=== PATIENT | female | born 1990 | race Caucasian/White ===

== ENCOUNTER 2024-03-13 23:43 | Emergency (ER) | payer BC, OTHER ==
[~2024-03-13] VITALS: Ht 167.6 cm; Wt 72.6 kg
[2024-03-14] MEDS ORDERED: methylPREDNISolone SOD SUCC 125 MG/2ML VIAL ONE ×2 (00:12→00:17)
[2024-03-14] MEDS: methylPREDNISolone SOD SUCC 125 MG/2ML VIAL IM ONE (00:17)
[2024-03-14] MEDS: ALBUTEROL FS 2.5 MG/3 ML VIAL.NEB NEB ONE (00:26)
[2024-03-14] MEDS ORDERED: ALBUTEROL FS 2.5 MG/3 ML VIAL.NEB ONE (00:36)
[2024-03-14 00:40] VITALS: O2SAT 97
[2024-03-14 00:50] VITALS: O2SAT 99
[2024-03-14 01:02] LABS: BASOPHILS % (AUTO) 0.5 % (0.0-2.0); EOSINOPHILS # (AUTO) 0.2 K/uL (0.0-0.7); EOSINOPHILS % (AUTO) 3.8 % (0.0-6.0); HEMATOCRIT 41 % (33-45); HEMOGLOBIN 13.5 g/dL (11.5-14.8); LYMPHOCYTES # (AUTO) 2.3 K/uL (0.8-4.8); MEAN CORPUSCULAR HEMOGLOBIN 30 PG (26.0-33.0); MEAN CORPUSCULAR HGB CONC 33 g/dl (31.0-36.0); MEAN CORPUSCULAR VOLUME 89 fL (82-100); MONOCYTES # (AUTO) 0.5 K/uL (0.1-1.30); MONOCYTES % (AUTO) 9.6 % (2.0-12.0); NEUTROPHILS # (AUTO) 2.5 K/uL (1.8-8.9); NEUTROPHILS % (AUTO) 45.1 % (43.0-81.0); PLATELET COUNT (AUTO) 385 K/uL (150-450); RED BLOOD CELL COUNT(AUTO) 4.57 MIL/uL (4.0-5.2); RED CELL DISTRIBUTION WIDTH 12.5 % (11.5-15.0); WHITE BLOOD COUNT (AUTO) 5.6 K/uL (4.3-11.0)
[2024-03-14 01:11] LABS: CALCIUM, SERUM 9.3 mg/dL (8.5-10.1); CREATININE 0.7 mg/dL (0.6-1.3); POTASSIUM 3.6 mmol/L (3.5-5.1)
[2024-03-14 01:26] LABS: ALBUMIN 3.8 g/dL (3.4-5.0); BILIRUBIN,TOTAL 0.2 mg/dL (0.2-1.0); TOTAL PROTEIN, SERUM 8.3 g/dL (6.4-8.2)
[2024-03-14] MEDS ORDERED: BENZ-13 PO (02:21)
[2024-03-14] MEDS ORDERED: PRED20TA PO (02:21)
[2024-03-14] MEDS ORDERED: ALBU8.5H8 INH (02:21)
[2024-03-14 02:38] VITALS: BP 122/86; TEMP 98.2; O2SAT 97
== END 2024-03-14 02:39 | disposition home or self-care (01) ==
LOC: ER 23:48
DX: J45.909 Unspecified asthma, uncomplicated (principal); Z79.1 Long term (current) use of non-steroidal anti-inflammatories (NSAID); Z79.52 Long term (current) use of systemic steroids; Z79.899 Other long term (current) drug therapy; Z20.822 Contact with and (suspected) exposure to COVID-19
CPT/HCPCS: 99284; 87426; 96372; 93005; 85025; 36415; 80053; 94640; J2919 ×2

== ENCOUNTER 2024-05-15 01:57 | Emergency (ER) | payer BC, OTHER ==
[~2024-05-15] VITALS: Ht 157.5 cm; Wt 65.8 kg
[~2024-05-15 01:57] MED LIST: ALBU8.5H8 INH; BENZ-13 PO; PRED20TA PO
[2024-05-15] MEDS ORDERED: AMOX-430 PO (02:23)
[2024-05-15] MEDS ORDERED: PRED20TA PO (02:23)
[2024-05-15] MEDS ORDERED: ALBU8.5H8 INH (02:23)
[2024-05-15] MEDS ORDERED: IBUPROFEN 600 MG TABLET ONE (02:23)
[2024-05-15] MEDS ORDERED: BENZ-13 PO (02:23)
[2024-05-15] MEDS ORDERED: predniSONE 20 MG TABLET ONE (02:23)
[2024-05-15] MEDS ORDERED: ACETAMINOPHEN ES 500 MG TABLET ONE (02:23)
[2024-05-15] MEDS: IBUPROFEN 600 MG TABLET PO ONE (02:27)
[2024-05-15] MEDS: predniSONE 20 MG TABLET PO ONE (02:28)
[2024-05-15] MEDS: ACETAMINOPHEN ES 500 MG TABLET PO ONE (02:28)
[2024-05-15] MEDS: ALBUTEROL FS 2.5 MG/3 ML VIAL.NEB NEB ONE (02:29)
[2024-05-15] MEDS: IPRATROPIUM NEB FS 0.5 MG/2.5 ML AMPUL.NEB NEB ONE (02:29)
[2024-05-15 02:30] VITALS: O2SAT 97
[2024-05-15] MEDS ORDERED: IPRATROPIUM NEB FS 0.5 MG/2.5 ML AMPUL.NEB ONE (02:33)
[2024-05-15] MEDS ORDERED: ALBUTEROL FS 2.5 MG/3 ML VIAL.NEB ONE (02:33)
[2024-05-15 02:40] VITALS: O2SAT 100
[2024-05-15 03:30] VITALS: BP 146/85; TEMP 100.7; O2SAT 97
== END 2024-05-15 03:30 | disposition home or self-care (01) ==
LOC: ER 01:59
DX: J45.909 Unspecified asthma, uncomplicated (principal); Z79.52 Long term (current) use of systemic steroids; Z20.822 Contact with and (suspected) exposure to COVID-19
CPT/HCPCS: 99285; 87426; 94640; J7512